=== PATIENT | male | born 1945 | race Caucasian/White ===

== ENCOUNTER 2017-06-27 11:31 | Inpatient (IN) | payer MEDICARE ==
[~2017-06-27] VITALS: Ht 170.2 cm; Wt 86.2 kg
[2017-06-27] VITALS (33 sets, daily range): BP systolic 70–112; BP diastolic 40–77
--- NOTE | 2017-06-27 11:31 | NUR ---
Suhail estevezdeirdre in ED - 06/27/17 at 1135 by KARAN Patient was BIBA and taken to bed 03 via ernie per EMS.
--- NOTE | 2017-06-27 11:31 | NUR ---
Patient was BIBA at this time.
--- NOTE | 2017-06-27 11:35 | NUR ---
Patient being taken to bed 03 via gurney per EMS.
--- NOTE | 2017-06-27 11:37 | NUR ---
Dr. Cash evaluating patient at bedside.
--- NOTE | 2017-06-27 11:40 | NUR ---
PT BIBA FROM HOME FOR EVALUATION OF HYPOTENSION AND WEAKNESS SINCE THIS AM. HX CIRRHOSIS OF THE LIVER, CKD, HTN, ANEMIA. PT WAS ON HOSPICE UP UNTIL THIS AM, SPOUSE CANCELLED HOSPICE AND DNR STATUS AND PT NOW FULL CODE. DENIES N/V/D; SKIN IS PINK/WARM/DRY; AAOX4 WITH EVEN AND STEADY GAIT; LUNGS CLEAR BL; HR EVEN AND REGULAR; PT DENIES ANY FEVER, CP, SOB, OR COUGH AT THIS TIME; PATIENT STATES PAIN OF 0/10 AT THIS TIME; VSS; PATIENT POSITIONED FOR COMFORT; HOB ELEVATED; BEDRAILS UP X2; BED DOWN. ER MD MADE AWARE OF PT STATUS.
[2017-06-27] MEDS ORDERED: NACL 0.9% 1,000 ML IV ONE (11:45)
--- NOTE | 2017-06-27 11:59 | NUR ---
LAB at bedside.
[2017-06-27 12:11] LABS: HEMATOCRIT 23.1 % (36-52); HEMOGLOBIN 7.3 g/dL (12.0-18.0)
--- NOTE | 2017-06-27 12:12 | NUR ---
Patient taken to CT via ernie lewis.
[2017-06-27 12:15] LABS: MEAN CORPUSCULAR HEMOGLOBIN 27 pg (27-31); MEAN CORPUSCULAR HGB CONC 32 g/dL (33-37); MEAN CORPUSCULAR VOLUME 86 fL (80-94); PLATELET COUNT (AUTO) 97 K/uL (140-450); RED BLOOD CELL COUNT(AUTO) 2.68 MIL/uL (4.20-6.10); RED CELL DISTRIBUTION WIDTH 18.6 % (11.6-13.7); WHITE BLOOD COUNT (AUTO) 8.4 K/uL (4.8-10.8)
[2017-06-27 12:32] LABS: PROTHROMBIN TIME 14.9 secs (10.8-13.4)
[2017-06-27 12:38] LABS: ALBUMIN 2.1 g/dL (3.4-5.0); ANION GAP 21.2 (8-16); POTASSIUM 5.2 mmol/L (3.5-5.1)
[2017-06-27 12:42] LABS: EOSINOPHILS % (MANUAL) 0 % (0-4); LYMPHOCYTES % (MANUAL) 6 % (20-46); MONOCYTES % (MANUAL) 6 % (5-12)
--- NOTE | 2017-06-27 12:47 | NUR ---
ivf ns 500 ml was started at 1235 pm.
[2017-06-27 12:52] LABS: CREATININE 4.9 mg/dL (0.7-1.3)
[2017-06-27] MEDS ORDERED: VANCOMYCIN 1,000 MG in DEXTROSE 5% 250 ML IV ONE (12:55)
[2017-06-27] MEDS ORDERED: VANCOMYCIN 1,000 MG VIAL ONE (13:11)
[2017-06-27 13:21] LABS: APPEARANCE,URINE HAZY (CLEAR); BILIRUBIN,URINE 1+ (NEGATIVE); BLOOD, URINE TRACE-I (NEGATIVE); COLOR,URINE ORANGE (YELLOW); LEUKOCYTE ESTERASE ,URINE NEGATIVE (NEGATIVE); NITRITE, URINE NEGATIVE (NEGATIVE); PH,URINE 5.5 (5.0-9.0); UGLUCOSE NEGATIVE (NEGATIVE)
[2017-06-27 13:34] LABS: RBC,URINE 0-3 /HPF (0-5); WBC,URINE 0-4 /HPF (0-5)
[2017-06-27] MEDS ORDERED: ONDANSETRON 4 MG/2 ML VIAL IVP PRN (13:55)
[2017-06-27] MEDS ORDERED: NACL 0.9% 1,500 ML IV SCH (13:55)
--- NOTE | 2017-06-27 14:20 | NUR ---
Patient will be admitted to care of DR ARECHIGA. Admited to ICU. Will go to room ICU2. Belongings list completed. Report to RONNI LEAL.
[2017-06-27] MEDS ORDERED: NOREPINEPHRINE 4 MG in DEXTROSE 5% 250 ML IV ONE (14:30)
[2017-06-27] MEDS ORDERED: NACL 0.9% 500 ML IV ONE (14:45)
[2017-06-27] MEDS ORDERED: NACL 0.9% 1,000 ML IV SCH ×2 (14:48→15:30)
[2017-06-27 14:54] LABS: CHOL/HDL RATIO 2.9 (1-4.5); FREE T4 (FREE THYROXINE) 1.28 ng/dL (0.76-1.46); PHOSPHORUS 8.5 mg/dL (2.5-4.9); THYROID STIMULATING HORMONE 3.13 uIU/mL (0.34-3.74)
--- NOTE | 2017-06-27 15:18 | NUR ---
ADMITTED PT FROM ER BY FIDENCIO, PT AWAKE, ALERT. BEDSIDE MONITOR SHOWS SR. BP 74/46. PT ON O2 3L/MIN, NO S/S OF RESPIRATORY DISTRESS NOTED. LUNG SOUNDS CLEAR, ABDOMEN EXTENDED WITH ACTIVE BOWEL SOUND. IV SITE INTACT AND PATENT. GENERALIZED WEAKNESS NOTED. PT HAS CENTRAL LINE IN RIGHT I.J, SKIN INTACT, PT ABLE TO MOVE ALL HIS EXTREMITIES. HOB ELEVATED 30 DEGREES WITH LOW BED POSITION, MRSA NARES SWAP DONE,WILL CONTINUE TO MONITOR.
[2017-06-27] MEDS: NOREPINEPHRINE 8 MG in DEXTROSE 5% 250 ML IV PRN ×2 (16:08→23:44)
--- NOTE | 2017-06-27 16:08 | NUR ---
STARTED PT ON LEVOPHED DRIP, PT BP 87/55 AT THIS TIME. HR 96, O2 SAT 92%.
[2017-06-27] MEDS ORDERED: VANCOMYCIN PER PHARMACY MC PRN (16:30)
[2017-06-27 17:23] LABS: HEMATOCRIT 24.9 % (36-52); HEMOGLOBIN 7.8 g/dL (12.0-18.0); MEAN CORPUSCULAR HEMOGLOBIN 27 pg (27-31); MEAN CORPUSCULAR HGB CONC 31 g/dL (33-37); MEAN CORPUSCULAR VOLUME 86 fL (80-94); PLATELET COUNT (AUTO) 137 K/uL (140-450); RED BLOOD CELL COUNT(AUTO) 2.89 MIL/uL (4.20-6.10); RED CELL DISTRIBUTION WIDTH 18.5 % (11.6-13.7); WHITE BLOOD COUNT (AUTO) 10.3 K/uL (4.8-10.8)
[2017-06-27] MEDS: NACL 0.9% 1,000 ML IV SCH (17:23)
[2017-06-27 17:36] LABS: ANION GAP 20.1 (8-16); CARBON DIOXIDE 11.7 mmol/L (21-32); POTASSIUM 4.8 mmol/L (3.5-5.1)
[2017-06-27 17:39] LABS: CREATININE 4.4 mg/dL (0.7-1.3)
[2017-06-27 17:43] LABS: LYMPHOCYTES % (MANUAL) 5 % (20-46); MONOCYTES % (MANUAL) 9 % (5-12)
--- NOTE | 2017-06-27 18:10 | NUR ---
NOTIFIED DR. MCCURDY PT HAD LOW URINE OUTPUT AFTER 2.5 L BOLUS .PT BP 83/52 AFTER INCREASING LEVOPHED DRIP. PER DR. MCCURDY , SHE WILL COME TO CHECK PT.
--- NOTE | 2017-06-27 19:15 | NUR ---
REPORT GIVEN TO ELECTROPLATING LABORER RN.
--- NOTE | 2017-06-27 19:30 | NUR ---
received pt awake lethargic and oriented x4. sr on monitor.on 02nc at 3lpm.with central line tlc to rt ij intact.with good blood return to all 3 ports.w/ peripheral iv to lt ac g20 and rt wrist g 20.saline lock.abdomen distended.with zuñiga catheter to bsd draining small amt of dark delmi urine.pt able to move all extremities with mild weakness to ble.skin intact.denies pain at this time
[2017-06-27] MEDS: DOCUSATE SODIUM 100 MG GELCAP PO SCH (20:48)
[2017-06-27] MEDS: PIPER/TAZO 2.25GM/D5W PREMIX 50 ML IV SCH (20:48)
--- NOTE | 2017-06-27 21:00 | NUR ---
pt dozing on and off; at bedside. levophed drip still at 20mcg/min.denies pain when asked.repositioned.
[2017-06-27] MEDS ORDERED: NOREPINEPHRINE 4 MG/4 ML VIAL IV ONE (22:26)
--- NOTE | 2017-06-27 23:48 | NUR ---
bp 89/55; levophed drip increased to 22mcg/min(41.25ml/hr). will continue to closely monitor pt.
[2017-06-28] VITALS (95 sets, daily range): BP systolic 84–128; BP diastolic 41–87
[2017-06-28] MEDS: NACL 0.9% 1,000 ML IV SCH ×2 (01:09→10:02)
--- NOTE | 2017-06-28 01:49 | NUR ---
pt asleep;easily arousable. still at bedside.still on levophed drip at 22mcg/min.pt repositioned.small amt of dark delmi urine noted on zuñiga catheter.denies pain.will continue to closely monitor pt
--- NOTE | 2017-06-28 02:00 | NUR ---
bp 88/54;levophed drip increased to 24mcg/min.
--- NOTE | 2017-06-28 03:45 | NUR ---
PTS CONDITION REMAINS UNCHANGED.STILL ON LEVOPHED DRIP.STILL ON 02NC AT 3LPM.NO RESP DISTRESS NOTED.DENIES PAIN WHEN ASKED.
[2017-06-28 04:51] LABS: BASOPHILS # (AUTO) 0.1 K/uL (0.00-0.22); BASOPHILS % (AUTO) 0.3 % (0.0-2.0); EOSINOPHILS # (AUTO) 0.1 K/uL (0-0.4); EOSINOPHILS % (AUTO) 0.7 % (0.0-4.0); HEMATOCRIT 25.2 % (36-52); HEMOGLOBIN 8.3 g/dL (12.0-18.0); LYMPHOCYTES # (AUTO) 0.7 K/uL (2.0-11.5); LYMPHOCYTES % (AUTO) 3.9 % (20.5-51.1); MEAN CORPUSCULAR HEMOGLOBIN 28 pg (27-31); MEAN CORPUSCULAR HGB CONC 33 g/dL (33-37); MEAN CORPUSCULAR VOLUME 86 fL (80-94); MONOCYTES # (AUTO) 1.5 K/uL (0.8-1.0); MONOCYTES % (AUTO) 8.9 % (1.7-9.3); NEUTROPHILS # (AUTO) 14.5 K/uL (1.8-7.7); NEUTROPHILS % (AUTO) 86.2 % (42.2-75.2); PLATELET COUNT (AUTO) 200 K/uL (140-450); RED BLOOD CELL COUNT(AUTO) 2.94 MIL/uL (4.20-6.10); RED CELL DISTRIBUTION WIDTH 18.5 % (11.6-13.7); WHITE BLOOD COUNT (AUTO) 16.9 K/uL (4.8-10.8)
[2017-06-28] MEDS: PIPER/TAZO 2.25GM/D5W PREMIX 50 ML IV SCH ×3 (04:53→21:58)
[2017-06-28] MEDS: NOREPINEPHRINE 8 MG in DEXTROSE 5% 250 ML IV PRN ×3 (05:01→18:35)
[2017-06-28] MEDS ORDERED: NOREPINEPHRINE 4 MG/4 ML VIAL IV ONE (05:03)
--- NOTE | 2017-06-28 05:41 | NUR ---
PTS BP 84/52; RECHECKED STILL 85/53; LEVOPHED DRIP INCREASED TO 26MCG/MIN(48.75ML/HR). DR MCCURDY AT BEDSIDE.PT EXAMINED.UPDATED ON PTS PRESENT CONDITION.NO NEW ORDERS
[2017-06-28 06:12] LABS: ANION GAP 19.1 (8-16); CARBON DIOXIDE 12.9 mmol/L (21-32)
[2017-06-28 06:17] LABS: MAGNESIUM 1.9 mg/dL (1.8-2.4); PHOSPHORUS 8.1 mg/dL (2.5-4.9)
--- NOTE | 2017-06-28 06:23 | NUR ---
PHONE CALL MADE TO DR MCCURDY FOR BUN 79 AND CREATININE 5.0; NO NEW ORDERS. PT ASLEEP AT THIS TIME.NO SIGNS OF PAIN NOTED.LEVOPHED STILL AT 26 MCG/MIN
--- NOTE | 2017-06-28 07:30 | NUR ---
RECEIVED REPORT FROM NIGHT RN FOR CONTINUITY OF CARE.
[2017-06-28] MEDS: CALCIUM ACETATE 667 MG TAB PO SCH ×2 (08:48→17:18)
[2017-06-28] MEDS: FAMOTIDINE 20 MG/2 ML VIAL IV SCH (08:49)
[2017-06-28] MEDS: DOCUSATE SODIUM 100 MG GELCAP PO SCH ×2 (08:49→21:54)
[2017-06-28] MEDS ORDERED: LACTULOSE 20 GM/30 ML UDC PO SCH (09:00)
--- NOTE | 2017-06-28 09:14 | NUR ---
CALLED [facility], AND WAS TOLD THEY RECEIVED NOTIFICATION OF THIS PATIENT'S ADMIT. WAS TOLD TO FAX CLINICALS TO [phone], WHICH I DID.
--- NOTE | 2017-06-28 10:23 | NUR ---
RECEIVED A CALL FROM JOANIE JUAREZ FROM [facility]. PHONE [phone]. SHE SAID SHE SPOKE WITH NURSE IN ICU AND LARRY SAID THEY CANNOT TAKE THE PATIENT TODAY, LEVOPHED DRIP TOO HIGH. CAN ONLY TAKE IF IT IS 5 OR 6 SUSY. LARRY IS AWARE THAT WANTS [facility]. ANN RUDOLPH IN ICU AWARE OF NO TRANSFER TODAY. HARD COPY AUTHORIZATION RECEIVED FROM [facility] FOR ADMIT 06/27/17 TO 06/28/17. AUTH NUMBER [id number].
--- NOTE | 2017-06-28 10:55 | NUR ---
VERIFIED WITH RESIDENT PHYSICIAN DR MCCURDY IF LEVOPHED SHOULD BE TITRATED WITH SBP OR MAP. STATED THAT WE CAN TITRATE IT DEPENDING ON THE MAP.
--- NOTE | 2017-06-28 11:20 | NUR ---
PATIENT HAS BEEN SCREENED AND CATEGORIZED HIGH NUTRITION RISK. PATIENT WILL BE SEEN WITHIN 1-2 DAYS OF ADMISSION. 06/28/17-06/29/[address]
[2017-06-28 11:31] LABS: TRANSFERRIN 106 mg/dL (200 - 370)
[2017-06-28] MEDS ORDERED: SODIUM BICARBONATE 8.4% PFS 50 MEQ/50 ML SYR IVP SCH (14:15)
--- NOTE | 2017-06-28 14:27 | NUR ---
06/28/17 RD INITIAL ASSESSMENT COMPLETED PLEASE REFER TO NUTRITION ASSESSMENT UNDER CARE ACTIVITY FOR ESTIMATED NUTRITIONAL NEEDS. 1. CONTINUE RENAL 40G PROTEIN DIET 2. ENCOURAGE INCREASED PO INTAKE TO TOLERANCE 3. RD TO FOLLOW UP 2-3 DAYS, HIGH RISK MING SEGOVIA, GERALDINE
[2017-06-28 14:33] LABS: FERRITIN 85 ng/mL (30 - 400)
[2017-06-28] MEDS: SODIUM BICARBONATE IV SCH (14:47)
[2017-06-28] MEDS: DEXT 5% IV SCH (14:47)
[2017-06-28] MEDS: NACL 0.2% IV SCH (14:47)
[2017-06-28] MEDS ORDERED: VANCOMYCIN PER PHARMACY MC PRN ×2 (19:15→19:30)
--- NOTE | 2017-06-28 19:15 | NUR ---
REPORT TAKEN FROM DAY RN WITH [facility], PT'S ON LEVOPHED @ 14 MCG/MIN VIA REJ WITH TOLERATING WELL
[2017-06-28] MEDS ORDERED: HYDROCORTISONE NA SUCC 100 MG/2 ML VIAL IV ONE (19:40)
--- NOTE | 2017-06-28 20:00 | NUR ---
REPOSITION AND KEEP IN HOB @ 30 . TOLERATING WELL
--- NOTE | 2017-06-28 20:05 | NUR ---
PT'S AT THE BEDSIDE WITH PT.
--- NOTE | 2017-06-28 21:00 | NUR ---
DUE MEDICATION GIVEN MD ORDER. PT IS TAKING WELL, TOLERATING WELL.
--- NOTE | 2017-06-28 22:00 | NUR ---
PARTIAL SKIN CARE DONE, KEEP HOB AT 30 WITH TOLERATING WELL
[2017-06-28] MEDS ORDERED: HYDROCORTISONE NA SUCC 100 MG/2 ML VIAL ONE (22:31)
[2017-06-28] MEDS ORDERED: VANCOMYCIN 1GM/DEXT 5% PREMIX 200 ML IV SCH (23:00)
--- NOTE | 2017-06-28 23:35 | NUR ---
VAN CO TROUGH DONE OK TO GIVE VANCOMYCIN , GIVEN PER PHARMACY PROTOCOL
[2017-06-29] VITALS (91 sets, daily range): BP systolic 73–128; BP diastolic 46–87
[2017-06-29] MEDS ORDERED: VANCOMYCIN 1,000 MG VIAL ONE (00:01)
--- NOTE | 2017-06-29 00:15 | NUR ---
PT WANTED TO SEE DOCTOR WITH DON'T FEEL GOOD , NOTIFIED AT THIS TIME.
--- NOTE | 2017-06-29 02:00 | NUR ---
PERTIAL SKIN CARE GIVEN WITH PT WENT ASLEEP.PT T THE BEDSIDE WITH PT.
--- NOTE | 2017-06-29 04:00 | NUR ---
TOTAL CARE DONE , LINEN CHANGED . KEEP HOB UP AT 30 , TOLERATING WELL.
[2017-06-29] MEDS: PIPER/TAZO 2.25GM/D5W PREMIX 50 ML IV SCH ×3 (05:01→20:27)
[2017-06-29] MEDS: HYDROCORTISONE NA SUCC 100 MG/2 ML VIAL IV SCH ×3 (05:04→20:26)
[2017-06-29] MEDS: NACL 0.2% IV SCH ×2 (05:20→08:54)
[2017-06-29] MEDS: SODIUM BICARBONATE IV SCH ×2 (05:20→08:54)
[2017-06-29] MEDS: DEXT 5% IV SCH ×2 (05:20→08:54)
--- NOTE | 2017-06-29 06:00 | NUR ---
DUE MEDICATION GIVEN , NO OTHERS COMPLAINED . REPOSITION DONE . TOTAL URINE OUT PUT AT 600 [address] , CLOUDY, LIGHT MARY . NO BM YET. PT'S AT THE BEDSIDE WITH PT
[2017-06-29 06:01] LABS: BASOPHILS % (AUTO) 0.1 % (0.0-2.0); EOSINOPHILS # (AUTO) 0.1 K/uL (0-0.4); EOSINOPHILS % (AUTO) 1.2 % (0.0-4.0); HEMATOCRIT 24.6 % (36-52); LYMPHOCYTES # (AUTO) 0.2 K/uL (2.0-11.5); LYMPHOCYTES % (AUTO) 1.9 % (20.5-51.1); MEAN CORPUSCULAR HEMOGLOBIN 28 pg (27-31); MEAN CORPUSCULAR HGB CONC 32 g/dL (33-37); MEAN CORPUSCULAR VOLUME 85 fL (80-94); MONOCYTES # (AUTO) 0.9 K/uL (0.8-1.0); MONOCYTES % (AUTO) 9.2 % (1.7-9.3); NEUTROPHILS % (AUTO) 87.6 % (42.2-75.2)
[2017-06-29 06:05] LABS: ANION GAP 19.9 (8-16); CARBON DIOXIDE 15.7 mmol/L (21-32); POTASSIUM 4.6 mmol/L (3.5-5.1)
[2017-06-29 06:06] LABS: MAGNESIUM 1.7 mg/dL (1.8-2.4); PHOSPHORUS 7.8 mg/dL (2.5-4.9)
[2017-06-29 06:47] LABS: PLATELET COUNT (AUTO) 107 K/uL (140-450)
[2017-06-29 06:48] LABS: WHITE BLOOD COUNT (AUTO) 10.2 K/uL (4.8-10.8)
--- NOTE | 2017-06-29 07:44 | NUR ---
REPORT ENDORSE TO DAY NURSE WITH [facility]
--- NOTE | 2017-06-29 07:50 | NUR ---
RECEIVED PATIENT ASLEEP. AWAKEN EASILY FOR ASSESSMENT. PATIENT IS ORIENTED. PATIENT STATES THAT HE FEELS TIRED. PATIENT DENIES PAIN. MILD SOB ON EXERTION NOTED. RESP RATE 19/MIN. ON O2 NC 2 L/MIN. O2 SAT 96%. NO COUGH. LUNG SOUNDS DIMINISHED IN BASES. HYPOTENSIVE AND ON LEVOPHED DRIP @ 16 MCG/MIN. BP 103/54 ,MEAN BP 72. PER DR.JENAYA MCCURDY RESIDENT: TRYING TO CUT DOWN LEVOPHED DRIP AND KEEP MEAN BP ABOVE 60. SINUS RHYTHM ON MONITOR. 1+EDEMA OF BOTH LOWER LEGS. ABDOMEN IS LARGE,DISTENDED WITH ASCITES. HX LIVER CIRRHOSIS. C/O CONSTIPATED WHICH MD MADE AWARE AND WILL INCREASE FREQ OF LACTULOSE. MONCADA CATHETER IN PLACE,DRAINING SMALL AMT OF CLEAR YELLOW URINE. SKIN IS WARM,DRY AND INTACT. PT MOVES ALL EXTREMITIES W/MILD WEAKNESS. RT I.J TRIPLE LUMEN CATHETER INTACT WITH POSITIVE BLOOD FLOW. CVP READING 10-11 MMHG AFTER TRANSDUCER WAS CALIBRATED. HAS IV OF 1000 ML OF D5/0.2 NS + SODIUM BICARB 150 MEQ @ 75 ML/HR. PATIENT IS MODIFIED CODE. NO INTUBATION. MADE PT COMFORTABLE FOR BREAKFAST.CONT TO MONITOR PATIENT.
--- NOTE | 2017-06-29 08:45 | NUR ---
PATIENT HAS POOR APPETITE. ATE LITTLE BREAKFAST. PRESENT AT BEDSIDE.
[2017-06-29] MEDS: CALCIUM ACETATE 667 MG TAB PO SCH ×2 (08:52→16:16)
[2017-06-29] MEDS: FAMOTIDINE 20 MG/2 ML VIAL IV SCH (09:10)
[2017-06-29] MEDS: DOCUSATE SODIUM 100 MG GELCAP PO SCH ×2 (09:11→20:25)
[2017-06-29] MEDS: LACTULOSE 20 GM/30 ML UDC PO SCH ×3 (09:12→16:16)
[2017-06-29] MEDS: RIFAXIMIN 550 MG TAB PO SCH ×2 (09:34→21:01)
--- NOTE | 2017-06-29 10:00 | NUR ---
PATIENT RESTING WITH EYES CLOSED. APPEARS SLEEPING. NO SIGN OF DISTRESS. PRESENT AT BEDSIDE MOST OF THE TIMES.
--- NOTE | 2017-06-29 10:30 | NUR ---
PATIENT AWAKE. DENIES PAIN. REPOSITIONED. BILATERAL SCD ON.
[2017-06-29] MEDS: NOREPINEPHRINE 8 MG in DEXTROSE 5% 250 ML IV PRN (11:13)
--- NOTE | 2017-06-29 12:15 | NUR ---
RECEIVED PT FROM BERT RUDOLPH. PT AWAKE, ALERT. BEDSIDE MONITOR SHOWS SR, NO S/S OF RESPIRATORY DISTRESS NOTED. PT ON LEVOPHED DRIP 12 MCG/MIN. ABDOMEN EXTENDED. PT HAS RIGHT I.J TLC IN PLACE, SITE INTACT AND PATENT. MONCADA CATH IN PLACE WITH CLEAR YELLOW URINE NOTED. PT ABLE TO MOVE ALL HIS EXTREMITIES, FAMILY AT BEDSIDE, WILL CONTINUE TO MONITOR.
--- NOTE | 2017-06-29 12:27 | NUR ---
CM NOTE CONCURRENT REVIEW FAXED TO [facility] / FAX# [phone], ATTN: LARRY #[phone].
--- NOTE | 2017-06-29 14:40 | NUR ---
CM NOTE SPOKE W/ JOANIE JUAREZ FOR LONG POINT. MADE AWARE OF LEVOPHED DRIP IS DOWN TO 6MCG/HR BUT SBP IS STILL IN THE 90'S; WILL REASSESS FOR TRANSFER TOMORROW. BERT RUDOLPH MADE AWARE.
--- NOTE | 2017-06-29 14:43 | NUR ---
IN TO SEE PT. UPDATED LAB REPORT. WILL FOLLOW UP.
--- NOTE | 2017-06-29 15:50 | NUR ---
PT STATED " SOMETHING IS POKING MY EYES ", " A BLACK WOMAN WAS CALLING ME" WHILE GIVING PT BED BATH. PT'S AWARE, PER PT'S , HE STATED TO BE CONFUSED SOMETIMES SINCE LAST NIGHT. AWARE.
--- NOTE | 2017-06-29 17:05 | NUR ---
PT IS SLEEPING AT THIS TIME. NO S/S OF RESPIRATORY DISTRESS NOTED. PT'S AT BEDSIDE.
--- NOTE | 2017-06-29 18:59 | NUR ---
PT COMPLAINS ABDOMINAL PAIN, NOTIFIED DR. MARIE. DR. MARIE AT BEDSIDE TO ASSESS PT AT THIS TIME.
--- NOTE | 2017-06-29 19:08 | NUR ---
REPORT GIVEN TO SPINNER TENDER RN .
--- NOTE | 2017-06-29 19:15 | NUR ---
RECEIVED REPORT FROM AM SHIFTRN. INITIAL ASSESSMENT COMPLETED. PT IS AWAKE AT THIS TIME, WITH EPISODES OF CONFUSION. PT REORIENTED. WITH O2@ 2LPM VIA NASAL CANNULA, ATTACHED TO MARBLE MACHINE OPERATOR, PULSE OXIMETER. IVF AT RIGHT IJ TLC, ON LEVOPHED DRIP. RIGHT FOREARM 20G SALINE LOCK. PATENT, INTACT. MONCADA CATH IN PLACE, SCDS IN PLACE. NO SIGNS OF DISTRESS AT THIS TIME. BED IN LOW POSITION, SAFETY MEASURE ENSURE. WILL CONTINUE TO MONITOR.
--- NOTE | 2017-06-29 20:40 | NUR ---
AT BEDSIDE. PT ABLE TO TOLERATED MEDICATION WELL ORDERED.
--- NOTE | 2017-06-29 23:10 | NUR ---
NOTED TO HAVE WHISTLING SOUND-LIKE WHEN PATIENT'S BREATH. DR. MARIE NOTIFIED. CAME IN TO SEE PATIENT. AT BEDSIDE. WILL CONTINUE TO MONITOR.
--- NOTE | 2017-06-29 23:48 | NUR ---
PT HAD MODERATE AMOUNT OF SOFT LIGHT BROWN BOWEL MOVEMENT.
[2017-06-30] VITALS (88 sets, daily range): BP systolic 78–132; BP diastolic 35–80
[2017-06-30] MEDS: NACL 0.2% IV SCH ×2 (01:02→18:11)
[2017-06-30] MEDS: SODIUM BICARBONATE IV SCH ×2 (01:02→18:11)
[2017-06-30] MEDS: DEXT 5% IV SCH ×2 (01:02→18:11)
--- NOTE | 2017-06-30 01:23 | NUR ---
PT DOING BM AT THIS TIME. RN AND AT BEDSIDE.
--- NOTE | 2017-06-30 03:30 | NUR ---
PT HAD BM, SMALL AMOUNT OF SOFT BROWN STOOL.
[2017-06-30] MEDS ORDERED: methylPREDNISolone SS 125 MG/2 ML VIAL ONE (04:10)
[2017-06-30] MEDS: HYDROCORTISONE NA SUCC 100 MG/2 ML VIAL IV SCH ×3 (04:57→20:20)
[2017-06-30] MEDS: PIPER/TAZO 2.25GM/D5W PREMIX 50 ML IV SCH ×3 (04:58→20:20)
[2017-06-30 05:14] LABS: HEMOGLOBIN 8.2 g/dL (12.0-18.0); MEAN CORPUSCULAR HEMOGLOBIN 27 pg (27-31); MEAN CORPUSCULAR HGB CONC 32 g/dL (33-37); MEAN CORPUSCULAR VOLUME 85 fL (80-94); PLATELET COUNT (AUTO) 114 K/uL (140-450); RED BLOOD CELL COUNT(AUTO) 3.05 MIL/uL (4.20-6.10); RED CELL DISTRIBUTION WIDTH 18.3 % (11.6-13.7); WHITE BLOOD COUNT (AUTO) 10.9 K/uL (4.8-10.8)
--- NOTE | 2017-06-30 06:12 | NUR ---
MORNING CARE DONE. PT TOLERATED WELL
[2017-06-30 06:17] LABS: MAGNESIUM 1.9 mg/dL (1.8-2.4); PHOSPHORUS 7.8 mg/dL (2.5-4.9)
--- NOTE | 2017-06-30 06:21 | NUR ---
DR. BETHEA AT [facility], NOTIFIED OF PENILE SWELLING.
[2017-06-30 06:29] LABS: LYMPHOCYTES % (MANUAL) 2 % (20-46); MONOCYTES % (MANUAL) 5 % (5-12)
[2017-06-30 06:38] LABS: ANION GAP 21.9 (8-16); CARBON DIOXIDE 18.1 mmol/L (21-32)
[2017-06-30 06:40] LABS: CREATININE 4.8 mg/dL (0.7-1.3)
--- NOTE | 2017-06-30 07:08 | NUR ---
REPORT GIVEN TO RONNI LEAL FOR CONTINUITY OF CARE.
--- NOTE | 2017-06-30 07:30 | NUR ---
RECEIVED PT FROM PM RN. PT AWAKE, ALERT. BEDSIDE MONITOR SHOWS ST 109, PT ON O2 NC 2L/MIN,NO S/S OF RESPIRATORY DISTRESS NOTED. PT ON LEVOPHED DRIP 5 MCG/MIN. ABDOMEN EXTENDED. PT HAS RIGHT I.J TLC IN PLACE, SITE INTACT AND PATENT. MONCADA CATH IN PLACE WITH CLEAR YELLOW URINE NOTED. PT ABLE TO MOVE ALL HIS EXTREMITIES, HOB ELEVATED 30 DEGREES WITH LOW BED POSITION. WILL CONTINUE TO MONITOR. Addendum: 06/30/17 at 1137 by Ashutosh Gilliland RN PT ALSO HAS IV OF 1000 ML OF D5/0.2 NS + SODIUM BICARB 150 MEQ @ 75 ML/HR. PATIENT IS MODIFIED CODE. NO INTUBATION
--- NOTE | 2017-06-30 07:46 | NUR ---
RECEIVED HARD COPY AUTH FROM [place] FROM 06/28/17 TO 06/29/17 . AUTH [id number]. RECEIVED HARD COPY AUTH FROM [place] FROM 06/29/17 TO 06/30/17 AUTH [id number].
[2017-06-30] MEDS ORDERED: PROBIOTIC SCREEN 1 EA MISC MC PRN (07:55)
--- NOTE | 2017-06-30 08:07 | NUR ---
'S GROUP IN TO SEE PT. NOTIFIED PT IS ON LEVOPHED DRIP 5 MCG/MIN,WILL FOLLOW UP.
[2017-06-30] MEDS: LACTULOSE 20 GM/30 ML UDC PO SCH ×3 (08:29→16:38)
[2017-06-30] MEDS: DOCUSATE SODIUM 100 MG GELCAP PO SCH ×2 (08:30→20:30)
[2017-06-30] MEDS: RIFAXIMIN 550 MG TAB PO SCH ×2 (08:30→20:30)
[2017-06-30] MEDS: CALCIUM ACETATE 667 MG TAB PO SCH ×2 (08:30→16:38)
[2017-06-30] MEDS: FAMOTIDINE 20 MG/2 ML VIAL IV SCH (08:31)
--- NOTE | 2017-06-30 08:45 | NUR ---
FAXED CONCURRENT REVIEW TO [facility] [phone] PHONE LARRY [phone]
[2017-06-30] MEDS ORDERED: LACTOBACILLUS RHAMNOSUS GG 1 EACH CAP PO SCH (09:00)
--- NOTE | 2017-06-30 09:11 | NUR ---
DR. CERDA IN TO SEE PT.
[2017-06-30 09:12] LABS: BARBITURATE, URINE NEG ng/ml (NEG <=200); BENZODIAZEPINE, URINE NEG ng/mL (NEG <=200); CANNABINOID, URINE NEG ng/mL (NEG <=50); COCAINE, URINE NEG ng/mL (NEG <=300); OPIATE, URINE POS ng/mL (NEG <=2000); PHENCYCLIDINE SCREEN,URINE NEG ng/mL (NEG <=25)
--- NOTE | 2017-06-30 09:30 | NUR ---
PT HAD MODERATE AMOUNT OF SOFT BM, CLEANED PT.
--- NOTE | 2017-06-30 10:14 | NUR ---
LARRY RUDOLPH FROM [facility] CALLED IN, REPORT GIVEN TO HER, PER LARRY, SHE WILL CALL ACCEPT DOCTOR AND CALL US BACK LATER.
[2017-06-30] MEDS: NOREPINEPHRINE 8 MG in DEXTROSE 5% 250 ML IV PRN (10:48)
--- NOTE | 2017-06-30 10:50 | NUR ---
PT HAD LARGE AMOUNT OF LOOSE YELLOW BM, CLEANED PT.
--- NOTE | 2017-06-30 11:19 | NUR ---
RECEIVED A CALL FROM LARRY FROM [place] THIS AM. SHE RECEIVED MY REVIEW. SHE SAID THEY WILL BE LOOKING FOR AN ICU BED FOR THIS PATIENT TODAY, AND PER FAMILY, PREF[facility]ABLY [facility].
--- NOTE | 2017-06-30 13:07 | NUR ---
RECEIVED CALL FROM TWAN FROM [facility], PT WILL BE TRANSFERRED TO ICU ROOM 237, RUDY ORDOÑEZ IS HIS DOCTOR. BUSINESS INTELLIGENCE ADMINISTRATOR TIME IS 1900 .
--- NOTE | 2017-06-30 13:17 | NUR ---
06/30/17 RD FOLLOW-UP ASSESSMENT COMPLETED PLEASE REFER TO NUTRITION ASSESSMENT UNDER CARE ACTIVITY FOR ESTIMATED NUTRITIONAL NEEDS. 1. CONTINUE RENAL 40G PROTEIN DIET 2. IF POOR PO INTAKE CONTINUES, CONSIDER ENTERAL NUTRITION SUPPORT (CONSULT RD FOR RECOMMENDATIONS) 3. RD TO FOLLOW-UP 2-3 DAYS, HIGH RISK MING SEGOVIA, GERALDINE
--- NOTE | 2017-06-30 13:24 | NUR ---
SPOKE WITH LARRY FROM [facility]. THE PATIENT WILL BE GOING TO [facility] ICU ROOM [address] HUDSON. HE WILL BE PICKED UP AT 7P.M. CALL [phone] FOR REPORT. ELVIS RUDOLPH AWARE. ALSO INFORMED HER THAT THE CHART NEEDED TO BE COPIED AND XRAYS ON DISC. ALSO INCLUDE DISCHARGE SUMMARY.
--- NOTE | 2017-06-30 16:40 | NUR ---
ELIZABETH FROM [facility] CALLED IN, NOTIFIED THE TRANSPORTATION TEAM WILL FULFILLMENT REPRESENTATIVE AT 2200, PT'S AWARE, CHARGE NURSE AWARE, AWARE.
--- NOTE | 2017-06-30 19:08 | NUR ---
REPORT GIVEN TO TELEPHONE OPERATORS SUPERVISOR RN.
--- NOTE | 2017-06-30 19:10 | NUR ---
RECEIVED REPORT FROM RONNI LEAL. INITIAL ASSESSMENT COMPLETED. PT ASLEEP AT THIS TIME. ON O2@ 2LPM VIA NASAL CANNULA. ATTACHED TO ENT SURGEON AND PULSE OXIMETER. IV ACCESS RIGHT IJ TLC, IVF INFUSING WELL, ON LEVOPHED DRIP, SALINE LOCK AT RIGHT FOREARM 20G. PATENT, INTACT AT THIS TIME. MONCADA CATH IN PLACE, NOTED TO HAVE SMALL OPEN WOUND COCCYX AREA. CHARGE NURSE AWARE. BED IN LOW POSITION SAFETY MEASURE ENSURE. WILL CONTINUE TO MONITOR. Addendum: 06/30/17 at 2353 by Tonya Rojo RN SCDS IN PLACE
--- NOTE | 2017-06-30 19:51 | NUR ---
TALK TO DR. HOANG, HE STATED NO DISCHARGE MEDICATION, AND TO SALINE LOCK RIGHT IJ TLC.
--- NOTE | 2017-06-30 20:03 | NUR ---
SPOKE TO DR. HOANG REGARDING LEVOPHED DRIP IF IT CAN BE CONTINUED EVEN DURING TRANSPORT. AND HE SAID OK AND HE WILL PUT ORDER IN.
[2017-06-30] MEDS ORDERED: DEXTROSE 5% IV PRN (20:05)
[2017-06-30] MEDS ORDERED: NOREPINEPHRINE IV PRN (20:05)
[2017-06-30] MEDS ORDERED: NOREPINEPHRINE 4 MG in DEXTROSE 5% 250 ML IV PRN (20:10)
--- NOTE | 2017-06-30 20:10 | NUR ---
AT BEDSIDE, AWARE THAT PATIENT WILL BE TRANSFER TO [facility] AT 2200.
--- NOTE | 2017-06-30 21:39 | NUR ---
REPORT GIVEN TO RONNI STANTON, [facility]. [facility] IN THE UNIT TO MATTRESS INSPECTOR PATIENT. AT BEDSIDE. DR. HOANG SAID TO CONTINUE IV FLUIDS TOO.
--- NOTE | 2017-06-30 22:00 | NUR ---
PT OUT OF THE UNIT VIA PILORROSY ACCOMPANIED BY [facility] STAFF AND . RN PANTRY WORKER NOTIFIED.
[2017-06-30] MEDS ORDERED: NACL 0.2% IV SCH (22:10)
[2017-06-30] MEDS ORDERED: DEXT 5% IV SCH (22:10)
[2017-06-30] MEDS ORDERED: SODIUM BICARBONATE IV SCH (22:10)
[2017-07-01] MEDS ORDERED: DEXT 5% IV SCH (14:00)
[2017-07-01] MEDS ORDERED: SODIUM BICARBONATE IV SCH (14:00)
[2017-07-01] MEDS ORDERED: NACL 0.2% IV SCH (14:00)
== END 2017-06-30 22:00 | disposition short-term general hospital (02) | DRG 871 ==
LOC: MED 11:31 → MIC 13:55
PROVIDERS: ADMIT Family Medicine; ATTEND Family Medicine
PROC: 02HV33Z Insertion of Infusion Device into Superior Vena Cava, Percutaneous Approach (ICD-10-PCS; principal; 2017-06-27)
PROC: B548ZZA Ultrasonography of Superior Vena Cava, Guidance (ICD-10-PCS; 2017-06-27)
DX: A41.9 Sepsis, unspecified organism (principal); R65.21 Severe sepsis with septic shock; N17.0 Acute kidney failure with tubular necrosis; K76.7 Hepatorenal syndrome; J96.00 Acute respiratory failure, unspecified whether with hypoxia or hypercapnia; C22.8 Malignant neoplasm of liver, primary, unspecified as to type; K65.2 Spontaneous bacterial peritonitis; R18.8 Other ascites; C78.00 Secondary malignant neoplasm of unspecified lung; E43 Unspecified severe protein-calorie malnutrition; C79.51 Secondary malignant neoplasm of bone; K76.6 Portal hypertension; E87.1 Hypo-osmolality and hyponatremia; E72.20 Disorder of urea cycle metabolism, unspecified; Z51.5 Encounter for palliative care; Z66 Do not resuscitate; I95.0 Idiopathic hypotension; E83.39 Other disorders of phosphorus metabolism; J44.9 Chronic obstructive pulmonary disease, unspecified; D63.0 Anemia in neoplastic disease; E83.51 Hypocalcemia; K72.90 Hepatic failure, unspecified without coma; E88.09 Other disorders of plasma-protein metabolism, not elsewhere classified; D50.0 Iron deficiency anemia secondary to blood loss (chronic); D69.6 Thrombocytopenia, unspecified; K74.60 Unspecified cirrhosis of liver; E87.5 Hyperkalemia; N18.9 Chronic kidney disease, unspecified; D64.9 Anemia, unspecified; Z68.29 Body mass index [BMI] 29.0-29.9, adult; Z88.6 Allergy status to analgesic agent; Z88.1 Allergy status to other antibiotic agents; Z88.8 Allergy status to other drugs, medicaments and biological substances; Z92.21 Personal history of antineoplastic chemotherapy; Z92.3 Personal history of irradiation
CPT/HCPCS: 36415; 36556; 71010; 76705; 80048; 80053; 80202; 80305; 81001; 82140; 82150; 82607; 82728; 82746; 83036; 83540; 83605; 83690; 83735; 83880; 84100; 84439; 84443; 84484; 84550; 85025; 85045; 85610; 85730; 86886; 86900; 86901; 87040; 87081; 87086; 93005; 96360; 96361; 99291; J1720; J2543; J2930; J3370; J3490; J7030; J7060; Q0092